=== PATIENT | male | born 1975 | race Caucasian/White ===

== ENCOUNTER 2021-03-18 19:36 | Emergency (ER) | payer MEDICAID, SELFPAY ==
[2021-03-18 19:52] VITALS: BP 156/103; PULSE 66; RESP 18; TEMP 36.6; O2SAT 98; BMI 23.6
== END 2021-03-18 23:02 | disposition left against medical advice (07) ==
PROVIDERS: Emergency Provider Emergency Medicine
DX: L60.0 Ingrowing nail (principal)
CPT/HCPCS: 99281; 99282

== ENCOUNTER 2021-03-19 06:54 | Emergency (ER) | payer MEDICAID, SELFPAY ==
[2021-03-19 07:06] VITALS: BP 149/86; PULSE 72; RESP 18; TEMP 36.9; O2SAT 98; BMI 23.6
--- NOTE | 2021-03-19 07:16 | ED.EXTPRO ---
HPI - Extremity Problem General Chief complaint: Extremity Injury, Upper Stated complaint: r thumb infection hangnail Time Seen by Provider: 03/19/21 07:16 Source: patient Mode of arrival: ambulatory Limitations: no limitations History of Present Illness Complaint: extremity swelling Onset (ago): day(s) (4) Pain Consistency: constant Location: right and other (thumb) Quality: aching Radiation: none Relieving factors: nothing Exacerbating factors: palpation Associated symptoms: denies other symptoms Context: other (picked at a hangnail area became red and swollen tried to pop it at home) Related Data Previous Rx's Medication Instructions Recorded cephalexin 500 mg capsule 500 mg PO QID 7 Days #28 cap 03/19/21 Allergies Allergy/AdvReac Type Severity Reaction Status Date / Time Iodinated Contrast Media Allergy Unknown SEVERE Unverified 12/20/19 19:10 [IV CONTRAST] ITCHING Review of Systems Review of Systems: Constitutional : No Fever, No Chills ENT/Mouth : No sore throat, No Rhinorrhea Eyes: No Eye Pain, No Swelling, No Redness Cardiovascular : No Chest Pain, No SOB Respiratory : No Cough, No Sputum Gastrointestinal : No Nausea, No Vomiting, No Diarrhea, No abdominal Pain Genitourinary : No Dysuria, No Hematuria Musculoskeletal : No joint pain, No Myalgias, No Joint Swelling Skin : No Skin Lesions, positive skin rash Neuro : No Weakness, No Numbness, No Headache PMFSH Past Medical History Medical History Depression Tennis elbow Social History Social History (Updated 03/19/21 @ 07:30 by Aleyda Rueda DO) Patient Tobacco Use Status: Never used Tobacco Advance Directives: No Advance Directives Information Provided: Yes Physical Exam Vital Signs: Vital Signs: Last Vital Signs Temp 98.4 F 03/19/21 07:06 Pulse 72 03/19/21 07:06 Resp 18 03/19/21 07:06 BP 149/86 H 03/19/21 07:06 Pulse Ox 98 03/19/21 07:06 BMI result Body Mass Index 23.6 Appearance: Alert. Oriented X3. No acute distress. Eyes: Pupils equal, round and reactive to light. ENT: Pharynx normal. Neck: Normal inspection. Neck supple. CVS: Pulses normal. Respiratory: No respiratory distress. Abdomen: Soft and nontender. Skin: Skin warm and dry. Normal skin color. R thumb proximal nail fold lateral small red raised area with purulence noted consistent with paronychia full ROM no extension Extremities: No lower extremity edema. Neuro: Oriented X 3. No motor deficit. No sensory deficit. MDM - Extremity (Nontraumatic) MDM Narrative Medical decision making narrative: 45 yo male R thumb dominant hand paronychia for 4 days no extension full ROM - will lift proximal nail fold and start on cephalexin no concern for deeper space infection at this time. update Tdap Procedures Abscess I/D Site: hand (thumb) Side (if applicable): right Technique: needle aspiration Amount of fluid expressed (mL): 1 Sent for culture/gram staining?: No Irrigation: No Packing used?: none Discharge Plan Discharge Clinical Impression: Acute paronychia of right thumb Patient Disposition: Home, Self-Care Instructions: Paronychia (ED) Additional Instructions: return to ED for any worsening symptoms or concerns monitor for worsening redness, yellow drainage, fevers okay to soak salt warm water twice a day Prescriptions: New cephalexin 500 mg capsule 500 mg PO QID 7 Days Qty: 28 RF: 0 Stand Alone Forms: Work/School Release
[2021-03-19] MEDS: Diphth,Pertus(ACell),Tet Adult 0.5 ML SYRINGE IM (07:32)
== END 2021-03-19 07:54 | disposition home or self-care (01) ==
PROVIDERS: Emergency Provider Emergency Medicine
DX: L03.011 Cellulitis of right finger (principal)
CPT/HCPCS: 10060; 90471; 90715; 99283; 99284